=== PATIENT | female | born 1995 | race Caucasian/White ===

== ENCOUNTER 2018-09-21 09:29 | Outpatient (CLI) | payer BC ==
--- NOTE | 2018-09-21 17:35 | CT ---
CT ABDOMEN AND PELVIS: Comparison: None. History: Upper abdominal pain for six days with bloating. Technique: Multiple contiguous axial images were obtained in a CT of the abdomen and pelvis with cont rast. PO contrast was administered. Coronal reformats were performed. FINDINGS: The liver, gallbladder, kidneys, adrenal glands, spleen, and pancreas are unremarkable. No free air, free fluid, or stranding changes are seen in the abdomen or pelvis. The reproductive organs are unremarkable. The large and small bowel are unremarkable. The appendix is normal. No abnormal or pelvic lymphadenopathy are seen. The osseous structures, visualized inferior thorax and abdominal wall soft tissues are unremarkable. IMPRESSION: No significant intraabdominal/pelvic abnormality. POS: [facility]
== END 2018-09-21 09:30 | disposition home or self-care (01) ==
LOC: SCSCT 09:29
PROVIDERS: ATTEND Specialist
DX: R10.9 Unspecified abdominal pain (principal)
CPT/HCPCS: 74177